=== PATIENT | male | born 1975 | race Caucasian/White ===

== ENCOUNTER 2018-03-27 09:39 | Emergency (ER) | payer OTHER ==
[~2018-03-27] VITALS: Ht 175.3 cm; Wt 68.0 kg
[2018-03-27] MEDS ORDERED: CELEXA40 MG PO (10:01)
[2018-03-27 10:16] LABS: ABSOLUTE BASOPHILS 0.1 thou/uL (0.0-0.2); ABSOLUTE LYMPHOCYTES 1.9 thou/uL (0.8-5.3); ABSOLUTE MONOCYTES 0.8 thou/uL (0.0-1.2); ABSOLUTE NEUTROPHILS 10.9 thou/uL (1.6-8.1); EOSINOPHILS 0.1 %; HEMATOCRIT 44.5 % (42.0-52.0); HEMOGLOBIN 14.7 gm/dL (14.0-18.0); MCH 28.8 pg (26.0-34.0); MCV 87.2 fL (80.0-100.0); NUCLEATED RBCS 0 /100WBC; PLATELET COUNT* 294 thou/uL (150-400); POLYS 78.9 %; RBC 5.11 mil/uL (4.50-6.00); RDW-CV 14.8 % (10.5-14.5); WBC 13.9 thou/uL (4.0-11.0)
[2018-03-27 10:18] LABS: URINE BILIRUBIN NEGATIVE (Negative); URINE BLOOD NEGATIVE (Negative); URINE CLARITY CLEAR; URINE COLOR YELLOW; URINE GLUCOSE-RANDOM NEGATIVE (Negative); URINE KETONES NEGATIVE (Negative); URINE LEUKOCYTES-REFLEX NEGATIVE (Negative); URINE NITRITE-REFLEX NEGATIVE (Negative); URINE PROTEIN NEGATIVE (Negative); URINE SPECIFIC GRAVITY >= 1.030 (1.005-1.030); URINE UROBILINOGEN 0.2 E.U./dl (0.2-1.0)
[2018-03-27 10:23] LABS: CALCIUM 9.5 mg/dL (8.5-10.1); CREATININE 1.2 mg/dL (0.6-1.3)
[2018-03-27 10:27] LABS: AMP/METHAMP POSITIVE (Negative); BARBITURATES Negative (Negative); BENZODIAZEPINES Negative (Negative); COCAINE Negative (Negative); METHADONE Negative (Negative); OPIATES Negative (Negative); PCP Negative (Negative); THC POSITIVE (Negative)
[2018-03-27 10:28] LABS: ALBUMIN 4.2 g/dL (3.4-5.0); TOTAL BILIRUBIN 0.4 mg/dL (<0.1-1.0); TOTAL PROTEIN 7.9 g/dL (6.4-8.2)
[2018-03-27 10:35] LABS: SALICYLATE < 2.8 mg/dL (2.8-20.0)
[2018-03-27 10:36] LABS: ACETAMINOPHEN < 2 ug/mL (10-30); ALCOHOL < 10 mg/dL (<10)
[2018-03-27 12:51] VITALS: BP 120/88
== END 2018-03-27 12:51 | disposition home or self-care (01) ==
LOC: M.ERS 09:39
PROVIDERS: Emergency Medicine
DX: F31.9 Bipolar disorder, unspecified (principal); F17.210 Nicotine dependence, cigarettes, uncomplicated; Z79.899 Other long term (current) drug therapy

== ENCOUNTER 2018-03-28 00:36 | Emergency (ER) | payer OTHER ==
[~2018-03-28] VITALS: Ht 170.2 cm; Wt 68.0 kg
[~2018-03-28 00:36] MED LIST: CELEXA40 MG PO
[2018-03-28 01:17] VITALS: BP 131/90
== END 2018-03-28 01:38 | disposition left against medical advice (07) ==
LOC: M.ERS 00:36
DX: F15.10 Other stimulant abuse, uncomplicated (principal); F41.9 Anxiety disorder, unspecified; F31.9 Bipolar disorder, unspecified